=== PATIENT | female | born 1935 | race Caucasian/White ===

== ENCOUNTER 2022-09-28 10:15 | Outpatient (CLI) | payer OTHER ==
[~2022-09-28 10:15] MED LIST: ADULT LOW DOSE81 M1 PO; GRALISE600 MG PO; SYNTH PO; VERAPAMIL ER120 MG PO
== END 2022-09-28 10:17 | disposition home or self-care (01) ==
LOC: SONOGRAMA 10:15
PROVIDERS: ATTEND Pathology Anatomic Pathology & Clinical Pathology
DX: E04.2 Nontoxic multinodular goiter (principal); D34 Benign neoplasm of thyroid gland